=== PATIENT | female | born 1960 | race Asian ===

== ENCOUNTER 2016-06-09 09:07 | Outpatient (CLI) | payer OTHER ==
--- NOTE | 2016-06-09 11:44 | DIAGNOSTIC IMAGING REPORT ---
PROCEDURE: MG B/L IMPLANTS - SCREENING INDICATION: SCREENING TECHNIQUE: CC and MLO digital views of each breast with CC and MLO digital implant-displacement views. COMPARISON: Compared to 05/18/2015, 11/03/2016. FINDINGS: Computer-aided detection applied. Bilateral subpectoral implants appear intact. The visualized portions of the surrounding breast parenchyma are moderately dense, but unchanged, and within normal limits. IMPRESSION: 1. Negative mammogram. RESULT CODE: 1- Negative. A. A negative report should not delay biopsy if a dominant or clinically suspicious mass is present. 10-15% of cancers are not identified by x-ray. B. A negative report may reinforce clinical impression. C. Adenosis and dense breasts may obscure an underlying neoplasm. D. False positive reports average 6-10%. E.. A yearly screening mammogram is recommended. A reminder letter will be scheduled.
== END 2016-06-09 23:00 ==
LOC: MAM SRH 09:07
DX: Z12.31 Encounter for screening mammogram for malignant neoplasm of breast (principal)